=== PATIENT | male | born 1985 | race Caucasian/White ===

== ENCOUNTER → 2022-01-26 | Day surgery (SDC) | payer OTHER ==
[~2022-01-26] VITALS: Ht 188 cm; Wt 95.2 kg
[~2022-01-26] MED LIST: AMOXICILLIN500 MG PO; MEDROL 4MG DOSEP4 MG PO; MOTRIN600 MG PO; PHENERGAN25 M1 PO; SUBOXONE 8 MG-1 EACH PO; SULFAMETHOXAZO1 EACH PO
[2022-01-26 08:12] LABS: BASOPHIL 0.6 % (0-2); EOSINOPHIL 7.6 % (0-5); HCT 43.5 % (42.0-52.0); HGB 14.8 g/dl (13.2-18.0); LYMPHOCYTE 51.6 % (15-48); MCH 28.1 pg (25.0-31.0); MCV 82.5 fL (78.0-100.0); MONOCYTE 8.1 % (0-12); MPV 9.2 fL (6.0-9.5); NEUTROPHIL 31.9 % (41-80); NRBC 0; PLT 161 K/uL (150-400); RBC 5.27 M/uL (4.70-6.00); RDW 12.3 % (11.5-14.0); WBC 5.2 K/uL (4.0-10.5)
[2022-01-26 08:48] LABS: ALBUMIN 3.7 g/dL (3.4-5.0); BILIRUBIN - TOTAL 0.3 mg/dL (0.2-1.0); BUN/CREAT RATIO (CALC) 23.9 RATIO; CREATININE 0.88 mg/dL (0.67-1.17); GLOBULIN (CALCULATION) 2.8 g/dL; POTASSIUM 4.2 mmol/L (3.5-5.1); TOTAL PROTEIN 6.5 g/dL (6.4-8.2)
== END | disposition home or self-care (01) ==
LOC: FAS 07:42
PROVIDERS: Oral & Maxillofacial Surgery
DX: K02.9 Dental caries, unspecified (principal); K04.7 Periapical abscess without sinus; Z88.1 Allergy status to other antibiotic agents
CPT/HCPCS: 36415; 80053; 85025; J0690; J1100; J1885; J2250; J2405; J7120